=== PATIENT | female | born 1995 | race Caucasian/White ===

== ENCOUNTER 2017-01-19 01:07 | Emergency (ER) | payer BC ==
[~2017-01-19] VITALS: Ht 167.6 cm; Wt 73.6 kg
[2017-01-19 01:16] VITALS: TEMP 36.8; Ht 167.6 cm; Wt 73.6 kg
[2017-01-19] MEDS ORDERED: XYLOCAINE 1%/SOD BICARB 20 ML VIAL INFIL ONE (01:30)
--- NOTE | 2017-01-19 02:24 | EMERGENCY ROOM VISIT NOTE ---
ED Visit Note First contact with patient: 01:22 CHIEF COMPLAINT: Toe injury HISTORY OF PRESENT ILLNESS: This 21-year-old patient presents to the emergency department with friend complaining of pain in the left great toe after she got the toenail lifted up when she got caught in a door. There is pain with weight bearing and they are able to move the toe fairly normally. There was bleeding. There is no redness, warmth, or discharge. The patient has taken nothing for their symptoms. The patient has not had a previous fracture to this toe. No other complaints. REVIEW OF SYSTEMS: A 6 system review of systems was completed with positives and pertinent negatives listed in the HPI. ALLERGIES: None MEDICATIONS: None PMH: None SOCIAL HISTORY: No drug use PHYSICAL EXAM: Vital Signs: Reviewed Nurse's notes, vital signs stable. GENERAL : Pleasant female, in no acute distress, but appears in pain, well-developed, well-nourished. SKIN: There is no erythema, redness, or warmth of the left great toe. There is no ecchymosis. There is minimal active bleeding from the toenail from the nailbed that is lifted up and no laceration. Patient's toenail is partially broken off and lifted up. Capillary refill less than two seconds. MUSCULOSKELETAL: The left great toe is tender to palpation over the nailbed. There is no limitation of motion due to tenderness. There is no visual deformity. The ankle joint is not swollen or tender. The foot is not swollen or tender. NEURO: Patient was alert and oriented to person place and time. Normal sensation to light and sharp touch. EMERGENCY DEPARTMENT COURSE: I examined the patient. Digital Block Indication: nailbed repair and nail revision Verbal consent obtained. Risks and benefits were explained with the usual customary discussion. A time out was taken. The skin was prepped with Betadine. Using sterile technique, 2 mL's of plain lidocaine was injected into the base of the great toe digit. No complications. The toenail was revised and there was no nailbed laceration. The area was cleansed and dressed with bacitracin and bandage. The patient tolerated the procedure well. An X-Ray of the left great toe was reviewed by myself and by attending and shows no fracture. The affected toe was lanced and dressed with bacitracin and bandage.. The patient was placed in a postop shoe under my direction and the position was satisfactory. The patient was discharged home in stable condition. DIAGNOSIS: #1 left great toe injury #2 left great toenail injury DISCHARGE INSTRUCTIONS & TREATMENT: Antibiotic ointment and bandage to the areas until healed. Follow up with family doctor or return for any signs of infection (increasing redness, swelling, drainage, or fever). Keep covered when in sun until fully healed then SPF 50 or higher until scar healed. Ibuprofen(Motrin, Advil) may be used for fever or pain. Use 600mg every six hours as needed. Take with food. Avoid using more than 2400mg in a 24 hour period. Do not use 2400mg per day for more than three consecutive days without physician direction. Prolonged inappropriate use can lead to stomach upset or ulcers. This medication can be taken if you need to drive, work, or perform activities which may be dangerous when taking narcotic pain medication. (AND/OR) Acetaminophen(Tylenol) may be used for fever or pain. Use 1000mg every six hours as needed. Avoid using more than 3000mg in a 24 hour period. This medication can be taken if you need to drive, work, or perform activities which may be dangerous when taking narcotic pain medication. Ice compresses for 20 minutes at a time four times daily for 2-3 days. Wear postop shoe for comfort. Rest and elevate your injury. Continue current medications. Return to the ER immediately for any numbness, tingling, severe pain, extreme swelling in the extremity or as needed. Call Orthopedics in 5-7 days if symptoms persist to arrange follow up for your injury. Current/Historical Medications No Active Prescriptions or Reported Meds Allergies Coded Allergies: No Known Allergies (Unverified , 01/19/17) Vital Signs Date Time Temp Pulse Resp B/P Pulse Ox O2 Delivery O2 Flow Rate FiO2 01/19/17 01:16 36.8 66 18 130/76 100 Room Air Departure Information Prescriptions No Active Prescriptions or Reported Meds Referrals No Doctor, Assigned (PCP) Patient Instructions [facility] [place]
[2017-01-19 02:34] VITALS: BP 118/63; PULSE 68; O2SAT 100
--- NOTE | 2017-01-19 07:56 | DIAGNOSTIC IMAGING REPORT ---
LEFT FIRST TOE 3 VIEWS HISTORY: left great toenail injury COMPARISON: None. FINDINGS: There is no fracture or dislocation. There is displacement of the toenail. No radiopaque foreign bodies. IMPRESSION: Displaced of the left first toenail. No fractures. Electronically signed by: Prince Brar M.D. 01/19/2017 7:54 AM Dictated Date/Time: 01/19/2017 7:54 AM
== END 2017-01-19 02:39 | disposition home or self-care (01) ==
LOC: C.EDB 01:09
DX: S91.202A Unspecified open wound of left great toe with damage to nail, initial encounter (principal); W23.0XXA Caught, crushed, jammed, or pinched between moving objects, initial encounter

== ENCOUNTER 2017-12-21 22:27 | Emergency (ER) | payer BC ==
[~2017-12-21] VITALS: Ht 167.6 cm; Wt 73.1 kg
[2017-12-21 22:30] VITALS: TEMP 37.5; Ht 167.6 cm; Wt 73.1 kg
[2017-12-21] MEDS ORDERED: SODIUM CHLORIDE 0.9% 1000ML 1,000 ML IV STA (22:42)
[2017-12-21] MEDS ORDERED: KETOROLAC TROMETHAMINE 30 MG/ML VIAL IV STA (22:42)
[2017-12-21] MEDS ORDERED: SODIUM CHLORIDE 0.9% 1000ML 1,000 ML IV ONE (22:42)
--- NOTE | 2017-12-21 22:51 | EMERGENCY ROOM VISIT NOTE ---
History Report prepared by Alexandre: John Mcguire Under the Supervision of: Dr. Warren Chua M.D. First contact with patient: 22:33 Chief Complaint: ABDOMINAL PAIN Stated Complaint: PELVIC PAIN,ABDOMINAL PAIN,DIZZY/LIGHTHEADED History of Present Illness The patient is a 22 year old female who presents to the Emergency Room with complaints of constant bilateral lower abdominal pain beginning 3 days ago. The patient notes waking up on and Saturday morning with severe abdominal pain and pelvic pain. She reports experiencing light periods for her last two menstrual cycles, lower back pain, intermittent dizziness, lightheadedness, hot/ cold flashes, minor pain in her legs, and bilateral shoulder and neck soreness. The patient states that she has not lifted weights for the past week, but notes that this has not improved her soreness. The patient denies any burning upon urination or blood in her urine, any abdominal surgeries, cough, pain upon walking, fever, or any other medical problems. The patient reports that she is sexually active and uses condoms as a form of contraception. She denies any pain with intercourse. Source of History: patient Onset: 3 days ago Position: neck (soreness on sides), shoulder (bilateral soreness), abdomen ( Bilateral lower abdominal pain ) Timing: constant Associated Symptoms: + back pain (lower), No fevers, No cough, No urinary symptoms Note: Associated Symptoms: Pelvic Pain, light periods, intermittent dizziness, lightheadedness, hot/cold flashes, minor leg pain, and bilateral shoulder and neck soreness. Denies: Burning urination. Review of Systems See HPI for pertinent positives & negatives. A total of 10 systems reviewed and were otherwise negative. Past Medical & Surgical Old medical records were reviewed. Nurse's notes were reviewed and I agree with. Family History FH: cancer FH: diabetes mellitus FH: heart disease Social History Smoking Status: Never Smoker Drug Use: none Housing Status: lives with roommate Occupation Status: [employer] student Current/Historical Medications No Active Prescriptions or Reported Meds Allergies Coded Allergies: No Known Allergies (Unverified , 12/21/17) Physical Exam Vital Signs Date Time Temp Pulse Resp B/P (MAP) Pulse Ox O2 Delivery O2 Flow Rate FiO2 12/22/17 01:07 76 18 109/62 98 Room Air 12/22/17 00:26 66 18 117/65 100 Room Air 12/21/17 22:30 37.5 113 20 136/79 97 Room Air Physical Exam General: Non-ill appearing young female in no acute distress. HEENT: Normal cephalic atraumatic. Pupils are equal round and reactive to light. Extraocular movements are intact. Oropharynx is pink with moist mucous membranes. No swelling of the mouth lips or tongue. Neck: Supple with a midline trachea. No meningeal signs or stiffness, no JVD or bruits. No Stridor. Chest: Clear to auscultation bilaterally. No wheezes or rhonchi. No increased work of breathing. Heart: regular rate and rhythm. Abdomen: Abdomen is mildly tender in lower abdomen bilaterally. No rebound or rigidity.. Extremities: No cyanosis clubbing or edema. No calf tenderness or assymetry Spine/Back. Non tender to palpation. No CVA tenderness Skin: Good turgor without rashes. Neurologic exam: Cranial nerves two through 12 are intact. Motor and sensation are intact and symmetrical throughout. Medical Decision & Procedures ER Provider Diagnostic Interpretation: Radiology results as stated below per my review and radiologist interpretation: CT ABDOMEN & PELVIS With Contrast: The right ovary measure up to 4 cm. Nonspecific fluid in the uterus, likely physiologic. Trace pelvic free fluid. Appendix is normal. No bowel obstruction or bowel thickening. No hydronephrosis or nephrolithiasis. Radiologist: Joyce Graves MD Chest x-ray per my interpretation reveals no pneumothorax, failure, or infiltrate. Laboratory Results 12/21/17 22:55 Red Blood Count 4.61, Mean Corpuscular Volume 87.2, Mean Corpuscular Hemoglobin 30.8, Mean Corpuscular Hemoglobin Concent 35.3, Mean Platelet Volume 9.9, Neutrophils (%) (Auto) 85.1, Lymphocytes (%) (Auto) 9.2, Monocytes (%) (Auto) 4.7, Eosinophils (%) (Auto) 0.5, Basophils (%) (Auto) 0.2, Neutrophils # (Auto) 9.78, Lymphocytes # (Auto) 1.06, Monocytes # (Auto) 0.54, Eosinophils # (Auto) 0.06, Basophils # (Auto) 0.02 12/21/17 22:55 Test 12/21/17 22:25 12/21/17 22:50 12/21/17 22:55 Human Chorionic Gonadotropin, Qual NEG (NEG) Urine Color YELLOW Urine Appearance CLEAR (CLEAR) Urine pH 7.0 (4.5-7.5) Urine Specific [place] 1.015 (1.000-1.030) Urine Protein NEG (NEG) Urine Glucose (UA) NEG (NEG) Urine Ketones TRACE (NEG) Urine Occult Blood 3+ (NEG) Urine Nitrite NEG (NEG) Urine Bilirubin NEG (NEG) Urine Urobilinogen NEG (NEG) Urine Leukocyte Esterase NEG (NEG) Urine WBC (Auto) 1-5 /hpf (0-5) Urine RBC (Auto) 0-4 /hpf (0-4) Urine Hyaline Casts (Auto) 0 /lpf (0-5) Urine Epithelial Cells (Auto) 20-30 /lpf (0-5) Urine Bacteria (Auto) NEG (NEG) Urine Test NEG (NEG) White Blood Count 11.49 K/uL (4.8-10.8) Red Blood Count 4.61 M/uL (4.2-5.4) Hemoglobin 14.2 g/dL (12.0-16.0) Hematocrit 40.2 % (37-47) Mean Corpuscular Volume 87.2 fL (80-100) Mean Corpuscular Hemoglobin 30.8 pg (25-34) Mean Corpuscular Hemoglobin Concent 35.3 g/dl (32-36) Platelet Count 206 K/uL (130-400) Mean Platelet Volume 9.9 fL (7.4-10.4) Neutrophils (%) (Auto) 85.1 % Lymphocytes (%) (Auto) 9.2 % Monocytes (%) (Auto) 4.7 % Eosinophils (%) (Auto) 0.5 % Basophils (%) (Auto) 0.2 % Neutrophils # (Auto) 9.78 K/uL (1.4-6.5) Lymphocytes # (Auto) 1.06 K/uL (1.2-3.4) Monocytes # (Auto) 0.54 K/uL (0.11-0.59) Eosinophils # (Auto) 0.06 K/uL (0-0.5) Basophils # (Auto) 0.02 K/uL (0-0.2) RDW Standard Deviation 39.0 fL (36.4-46.3) RDW Coefficient of Variation 12.2 % (11.5-14.5) Immature Granulocyte % (Auto) 0.3 % Immature Granulocyte # (Auto) 0.03 K/uL (0.00-0.02) Anion Gap 8.0 mmol/L (3-11) Est Creatinine Clear Calc Drug Dose 100.9 ml/min Estimated GFR () 105.3 Estimated GFR (Non- 90.8 BUN/Creatinine Ratio 14.2 (10-20) Calcium Level 8.6 mg/dl (8.5-10.1) Total Bilirubin 0.7 mg/dl (0.2-1) Direct Bilirubin 0.2 mg/dl (0-0.2) Aspartate Amino Transf (AST/SGOT) 22 U/L (15-37) Alanine Aminotransferase (ALT/SGPT) 20 U/L (12-78) Alkaline Phosphatase 117 U/L (45-117) Total Protein 7.7 gm/dl (6.4-8.2) Albumin 4.1 gm/dl (3.4-5.0) Lipase 73 U/L (73-393) Laboratory studies as stated above per my review. Medications Administered Medications (Trade) Dose Ordered Sig/Raine Route Start Time Stop Time Status Last Admin Dose Admin Sodium Chloride 1,000 ml @ 999 mls/hr Q1H1M STAT IV 12/21/17 22:42 12/21/17 23:42 DC 12/21/17 22:58 999 MLS/HR Ketorolac Tromethamine (Toradol Inj) 30 mg NOW STAT IV 12/21/17 22:42 12/21/17 22:44 DC 12/21/17 22:58 30 MG ED Course 2233: Past medical records reviewed. The patient was evaluated in room B2, and a complete history and physical examination were performed. 2242: Ordered Toradol Inj 30 mg IV, Sodium Chloride 1000 ml @ 150 mls/hr IV, and Sodium Chloride 1000 ml @ 999 mls/hr IV. 0100: Upon reevaluation, the patient is resting comfortably. I discussed the results and treatment plan with her. She verbalized agreement of the treatment plan. The patient was discharged home. Medical Decision Differential Diagnosis Include: Ovarian cyst, , ectopic , appendicitis, colitis, musculoskeletal, electrolyte or metabolic abnormality. This patient comes in as described above. She was placed in room B2. she has had some lower abdominal cramping. She had a recent menstrual period. She denies dysuria or hematuria. She has had some other vague symptoms as well. She looks well on exam. She is stable vital signs. Chest x-ray does not show any acute findings IV access was established was hydrated with IV normal saline. She was given Toradol 30 mg IV. Multiple blood testing was obtained. She was reassessed frequently. test was negative. She has a mildly elevated white count. Hemoglobin is stable. There is no acute electrolyte or metabolic abnormalities. There is nothing to suggest liver gallbladder pancreas disease. I did a CAT scan after it explained the risks and benefits. There is no evidence to suggest appendicitis or other abnormalities with exception of a ovarian cyst on the right there is a small amount of free fluid I think this is likely causing her symptoms. I will have her use ibuprofen. Return if: Increasing pain or vaginal bleeding, worsening of symptoms, any problems or concerns. She is happy to plan and discharged to home. Medication Reconcilliation Current Medication List: was personally reviewed by me Blood Pressure Screening Patient's blood pressure: Normal blood pressure Impression Primary Impression: Right lower quadrant abdominal pain Additional Impression: Ovarian cyst Scribe Attestation The scribe's documentation has been prepared under my direction and personally reviewed by me in its entirety. I confirm that the note above accurately reflects all work, treatment, procedures, and medical decision making performed by me. Departure Information Dispostion Home / Self-Care Prescriptions No Active Prescriptions or Reported Meds Referrals No Doctor, Assigned (PCP) Forms Work Instructions Patient Instructions My [facility] [place] Additional Instructions Rest. Drink plenty of fluids. Use ibuprofen 400 mg every 6 hours, take with food Return if: Increasing pain, worsening symptoms, fever or chills, any new problems or concerns Follow-up with your doctor on Saturday for recheck, sooner if any problems Problem Qualifiers
[2017-12-21 23:12] LABS: BASO % 0.2 %; BASO ABS # 0.02 K/uL (0-0.2); EOS % 0.5 %; EOS ABS # 0.06 K/uL (0-0.5); HEMATOCRIT 40.2 % (37-47); HEMOGLOBIN 14.2 g/dL (12.0-16.0); IG# 0.03 K/uL (0.00-0.02); LYMPH % 9.2 %; LYMPH ABS # 1.06 K/uL (1.2-3.4); MEAN CELL VOLUME 87.2 fL (80-100); MEAN CORPUSCULAR HEMOGLOBIN 30.8 pg (25-34); MEAN CORPUSCULAR HGB CONC 35.3 g/dl (32-36); MEAN PLATELET VOLUME 9.9 fL (7.4-10.4); MONO % 4.7 %; MONO ABS # 0.54 K/uL (0.11-0.59); NEUT % 85.1 %; NEUT ABS # 9.78 K/uL (1.4-6.5); PLATELET COUNT 206 K/uL (130-400); RED CELL DISTRIBUTION WIDTH CV 12.2 % (11.5-14.5); WHITE BLOOD COUNT 11.49 K/uL (4.8-10.8)
[2017-12-21 23:34] LABS: ALBUMIN 4.1 gm/dl (3.4-5.0); CALCIUM 8.6 mg/dl (8.5-10.1); CREATININE 0.91 mg/dl (0.60-1.20); POTASSIUM 3.2 mmol/L (3.5-5.1)
[2017-12-21 23:36] LABS: TOTAL PROTEIN 7.7 gm/dl (6.4-8.2)
[2017-12-22] MEDS ORDERED: OPTIRAY 320 IV PRN (00:15)
[2017-12-22 01:07] VITALS: BP 109/62; PULSE 76; O2SAT 98
--- NOTE | 2017-12-22 08:05 | DIAGNOSTIC IMAGING REPORT ---
CHEST ONE VIEW PORTABLE HISTORY: 22 years-old Female CHEST PAIN acute atypical chest pain COMPARISON: CT abdomen and pelvis of same day TECHNIQUE: Portable AP view the chest FINDINGS: Cardiomediastinal and hilar silhouettes are within normal limits. There is no pneumothorax, pleural effusion, focal airspace consolidation or overt pulmonary edema. The bones of the chest appear grossly intact. There is minimal convex left curvature of the lower thoracic spine, possibly related to positioning. IMPRESSION: No acute process. The above report was generated using voice recognition software. It may contain grammatical, syntax or spelling errors. Electronically signed by: Jimbo Acuna M.D. 12/22/2017 8:04 AM Dictated Date/Time: 12/22/2017 8:03 AM
--- NOTE | 2017-12-22 08:10 | DIAGNOSTIC IMAGING REPORT ---
ABDOMEN AND PELVIS CT WITH IV CONTRAST CT DOSE: 344.92 mGy.cm HISTORY: Acute right lower quadrant abdominal pain eval for appy TECHNIQUE: Multiaxial CT images of the abdomen and pelvis were performed following the use of intravenous contrast. 115 mL Optiray 320 IV contrast was administered. A dose lowering technique was utilized adhering to the principles of ALARA. COMPARISON STUDY: None. FINDINGS: Lung bases are clear. There is no pneumatosis or pneumoperitoneum identified. Imaged inferior cardiac chambers are unremarkable. 11 mm low attenuating lesion involving segment 4A of the liver suggest benign etiology such as a hemangioma and may demonstrate some peripheral nodular enhancement. There is no intrahepatic biliary ductal dilation. Gallbladder, spleen, pancreas and adrenal glands are within normal limits. The kidneys, ureters and urinary bladder are within normal limits. Trace free pelvic fluid is noted in addition to trace fluid of the endocervical canal, 3.9 x 3.1 cm ovoid cystic lesion of the right adnexum is noted. The left adnexum is unremarkable. Aorta is normal in both course and caliber. No bulky adenopathy identified. There is no bowel obstruction or focal bowel wall thickening. Fluid-filled nondilated loops of small bowel within the lower abdomen and pelvis are likely physiologic. The appendix also appears to be fluid-filled however is nondilated and noninflamed. Soft tissues are unremarkable. Bone islands are noted within the left femur and right hemipelvis. IMPRESSION: 1. 3.9 x 3.1 cm ovoid cystic lesion of the right adnexum suggests right ovarian cyst. Mild associated free pelvic fluid is likely physiologic. 2. No bowel obstruction or focal bowel wall thickening. 3. Normal appendix. Electronically signed by: Jimbo Acuna M.D. 12/22/2017 8:09 AM Dictated Date/Time: 12/22/2017 8:04 AM
--- NOTE | 2017-12-24 17:28 | Pharmacy Progress Note ---
ED Pharmacist Culture FollowUp Date of Service: Dec 24, 2017. Urine culture originally reported as gamma Strep not Enterococcus, now with corrected result of 3 types of organisms, probable skin libby. Patient denied dysuria, hematuria. No intervention required. Case discussed w Dr. Chua.
== END 2017-12-22 01:11 | disposition home or self-care (01) ==
LOC: C.EDB 22:28
DX: R10.31 Right lower quadrant pain (principal); N83.201 Unspecified ovarian cyst, right side; Z80.9 Family history of malignant neoplasm, unspecified; Z83.3 Family history of diabetes mellitus; Z82.49 Family history of ischemic heart disease and other diseases of the circulatory system